=== PATIENT | female | born 1965 | race Caucasian/White ===

== ENCOUNTER 2017-12-04 21:27 | Emergency (ER) | payer OTHER ==
[~2017-12-04] VITALS: Ht 160 cm; Wt 123.2 kg
[~2017-12-04 21:27] MED LIST: ALBUTEROL0.09 MG/A4 IH; ALBUTEROL0.83 MG/ML IH; ALEVE220 MG PO; ALLERGY RELIEF10 M1 PO; AMBIEN 5MG TABLE5 MG PO; CALAN SR 120MG120 MG PO; CITALOPRAM20 MG PO; CLEOCIN HCL300 MG PO; CLONAZEPAM0.25 MG PO; ESTRADIOL1 MG PO; FLONASE0.05 MG/AC NS; FLOVENT HF0.11 MG/AC IH; FOLIC ACID1 MG PO; IPRATROPIUM BROM3 M1 IH; KETOCONAZOLE2% TP; LEVOTHYROXINE0.05 MG PO; LISINOPRIL20 MG PO; PRILOSEC 20MG20 MG PO; PRINIVIL20 M1 PO; REQUIP0.5 MG PO; TRIAMCINOLONE0.1% TP; TUSSIONEX PENNKI5 ML PO; VAGIFEM10 MCG VG; [UNRECOGNIZED DRUG - OTHER] TP
[2017-12-04] MEDS ORDERED: OMEPRAZOLE40 MG PO (21:42)
[2017-12-04] MEDS ORDERED: CITALOPRAM40 MG PO (21:42)
[2017-12-04] MEDS ORDERED: PREDNISONE20 MG PO (21:43)
[2017-12-04] MEDS ORDERED: COSENTYX P150 MG/1 M SQ (22:18)
[2017-12-04] MEDS ORDERED: METHOTREXA25 MG/1 ML IJ (22:21)
[2017-12-04 22:28] LABS: HEMATOCRIT 44.8 % (37.0-47.0); HEMOGLOBIN 14.6 g/dL (12.5-16.0); MEAN CELL VOLUME 93 fl (78-100); MEAN CORPUSCULAR HEMOGLOBIN 30 pg (27-31); MEAN CORPUSCULAR HGB CONC 33 g/dL (33-37); MEAN PLATELET VOLUME 10.6 fl (7.4-10.4); PLATELET COUNT 209 K/mm3 (130-400); RED BLOOD COUNT 4.82 M/mm3 (4.10-5.30); RED CELL DISTRIBUTION WIDTH 14.1 % (11.5-14.5); WHITE BLOOD COUNT 15.1 K/mm3 (4.8-10.8)
[2017-12-04 22:41] LABS: ALBUMIN 3.6 g/dL (3.5-5.0); BUN/CREATININE RATIO 16.5 (6.0-26.0); TOTAL BILIRUBIN 0.5 mg/dL (0.2-1.3); TOTAL PROTEIN 7.2 g/dL (6.3-8.2)
[2017-12-04 22:44] LABS: BAND 1 % (0-10); LYMPHOCYTE 12 % (20-51); MONOCYTE 5 % (3-10); NEUTROPHILS 79 % (42-75)
[2017-12-04 23:21] LABS: URINE APPEARANCE HAZY; URINE BILIRUBIN NEGATIVE (NEGATIVE); URINE BLOOD TRACE (NEGATIVE); URINE COLOR YELLOW; URINE GLUCOSE NEGATIVE (NEGATIVE); URINE KETONE NEGATIVE (NEGATIVE); URINE LEUKOCYTE ESTERASE NEGATIVE (NEGATIVE); URINE MUCUS PRESENT (NOT PRESENT); URINE NITRATE NEGATIVE (NEGATIVE); URINE PROTEIN(semi-quant) NEGATIVE (NEGATIVE); URINE UROBILINOGEN NORMAL (NORMAL); URINE WBC 0-1 /hpf (0-3)
[2017-12-04] MEDS ORDERED: ZOFRAN ODT4 MG PO (23:46)
[2017-12-05 00:04] VITALS: BP 138/63
== END 2017-12-05 00:04 | disposition home or self-care (01) ==
LOC: ED 21:27
PROVIDERS: Family Medicine
DX: K52.9 Noninfective gastroenteritis and colitis, unspecified (principal); Z79.899 Other long term (current) drug therapy

== ENCOUNTER 2017-12-05 13:14 | Inpatient (IN) | payer OTHER ==
[~2017-12-05] VITALS: Ht 160 cm; Wt 120.3 kg
[~2017-12-05 13:14] MED LIST changes: +CITALOPRAM40 MG PO; +COSENTYX P150 MG/1 M SQ; +METHOTREXA25 MG/1 ML IJ; +OMEPRAZOLE40 MG PO; +PREDNISONE20 MG PO; +ZOFRAN ODT4 MG PO
[2017-12-05 13:29] VITALS: BP 151/75
[2017-12-05 13:53] LABS: HEMATOCRIT 47.5 % (37.0-47.0); HEMOGLOBIN 15.2 g/dL (12.5-16.0); MEAN CELL VOLUME 92 fl (78-100); MEAN CORPUSCULAR HEMOGLOBIN 30 pg (27-31); MEAN CORPUSCULAR HGB CONC 32 g/dL (33-37); MEAN PLATELET VOLUME 10.4 fl (7.4-10.4); PLATELET COUNT 224 K/mm3 (130-400); RED BLOOD COUNT 5.14 M/mm3 (4.10-5.30); RED CELL DISTRIBUTION WIDTH 14.1 % (11.5-14.5); WHITE BLOOD COUNT 18.9 K/mm3 (4.8-10.8)
[2017-12-05 14:12] LABS: BAND 1 % (0-10); LYMPHOCYTE 11 % (20-51); MONOCYTE 9 % (3-10); NEUTROPHILS 79 % (42-75)
[2017-12-05 14:14] LABS: BUN/CREATININE RATIO 11.4 (6.0-26.0); POTASSIUM 4.2 mmol/L (3.6-5.0)
--- NOTE | 2017-12-05 15:11 | NUR ---
ASSIST PATIENT TO ROOM 203 PER W/C. IV SITE REMAINS INTACT TO RT FOREARM. SHE IS STANDBY ASSIST FOR TRANSFERS. ORIENT TO ROOM PER FOREST PATROLMAN.
[2017-12-05 15:53] VITALS: BP 186/70
[2017-12-05 15:55] VITALS: BP 187/70
--- NOTE | 2017-12-05 16:15 | NUR ---
PATIENT ASSISTED TO BATHROOM. STATES "MY STOMACH IS STARTING TO CRAMP AGAIN. VOIDED 150 MLS OF CLEAR YELLOW URINE AND WHAT APPEARED TO BE A SMALL TO MEDIUM SIZED BRIGHT RED LIQUID STOOL. REPORTS HAVING "A LITTLE BIT" OF NAUSEA REQUESTED PRN ZOFRAN. REPORTS HAVING ABDOMINAL PAIN THAT RADIATES TO BACK RATED 8/10 AT THIS TIME DESCRIBES PAIN CRAMPING. REPORTS PAIN WILL BE 6/10 BUT THEN GO TO 8/10 WHEN CRAMPING. WHEN OFFERED PRN TORADOL PATIENT PATIENT REQUESTED IT. PATIENT'S CALL LIGHT WITHIN REACH. BED ALARM ON.
--- NOTE | 2017-12-05 17:10 | NUR ---
PATIENT RATES PAIN AFTER TORADOL 08/28. REPORTS IT HELPED WITH CRAMPING.
[2017-12-05 18:31] VITALS: BP 115/71
[2017-12-05 18:51] LABS: URINE APPEARANCE CLOUDY; URINE BILIRUBIN NEGATIVE (NEGATIVE); URINE COLOR YELLOW; URINE GLUCOSE NEGATIVE (NEGATIVE); URINE NITRATE NEGATIVE (NEGATIVE); URINE PROTEIN(semi-quant) TRACE mg/dL (NEGATIVE); URINE UROBILINOGEN NORMAL (NORMAL)
[2017-12-05 18:52] LABS: URINE BLOOD TRACE (NEGATIVE); URINE KETONE 1+ (NEGATIVE); URINE LEUKOCYTE ESTERASE NEGATIVE (NEGATIVE)
[2017-12-05 23:00] VITALS: BP 160/76
--- NOTE | 2017-12-06 01:43 | NUR ---
IV rate decreased to 125 cc/hr at this time per verbal order from Dr. Deshpande, patient resting comfortably with at bedside, denies any needs/complaints at this time
[2017-12-06 02:59] VITALS: BP 145/78
--- NOTE | 2017-12-06 05:45 | NUR ---
patient has just had 2 stools that appeared to be straight blood with some clots noted, is c/o more severe abdominal cramping again, IV toradol and po zofran given for comfort at this time, urine continues to be dark yellow, since admission she has had almost 4000 cc of IV fluids in and 400 cc of urine out, second hat placed in toilet for more accurate measurements of stool amounts, instructions given for patient to place all wipes and toilet paper in the trash for now so nurse can get a better look at her stools, patient and verbalized understanding of education, patients skin pale and cool, patient c/o chills, tucked in with a warm blanket, will continue to monitor closely
[2017-12-06 06:27] VITALS: BP 172/84
[2017-12-06 07:04] LABS: HEMOGLOBIN 13.3 g/dL (12.5-16.0); MEAN CELL VOLUME 94 fl (78-100); MEAN CORPUSCULAR HEMOGLOBIN 30 pg (27-31); MEAN CORPUSCULAR HGB CONC 32 g/dL (33-37); MEAN PLATELET VOLUME 10.7 fl (7.4-10.4); PLATELET COUNT 180 K/mm3 (130-400); RED BLOOD COUNT 4.45 M/mm3 (4.10-5.30); RED CELL DISTRIBUTION WIDTH 13.8 % (11.5-14.5)
[2017-12-06 07:50] LABS: BAND 1 % (0-10); LYMPHOCYTE 9 % (20-51); MONOCYTE 12 % (3-10); NEUTROPHILS 78 % (42-75)
--- NOTE | 2017-12-06 08:00 | NUR ---
Pt sitting up in bed. Reports feeling well. Rates pain 2-3/10. Stating it is much better and tolerable then when she got here. Denies any nasuea. Pt requests to take shower. Assisted to shower by CANELO
[2017-12-06 11:00] VITALS: BP 140/84
--- NOTE | 2017-12-06 12:00 | NUR ---
Pt reports abdominal cramping and has 100ml of liquid dark red stool. PRN medications given as ordered. at side
[2017-12-06 15:08] VITALS: BP 160/89
[2017-12-06 18:26] VITALS: BP 135/49
--- NOTE | 2017-12-06 18:50 | NUR ---
BEDSIDE SHIFT REPORT RECIEVED FORM ALPA ADAMES. PATIENT SITTING UP IN CHAIR, CALL LIGHT WITHIN REACH AND BED ALARM ON.
--- NOTE | 2017-12-06 21:26 | NUR ---
PATIENT SITTING UP IN CHAIR, FAMILY AT SIDE. SHIFT ASSESSMENT COMPLETED AT THIS TIME. PATIENT A/O X4. RATING PAIN 3/10 TO LOWER ABDOMEN, WOULD LIKE PRN PAIN MEDICATION WHEN AVAILABLE. LUNGS CTA, DENIES COUGH OR SHORTNESS OF BREATH. BOWEL SOUNDS HYPOACTIVE IN ALL QUADRANTS. 20 G TO RIGHT FOREARM INFUSING NS @ 125 MLS/HR. PATIENT WITHOUT FURTHER NEEDS, WILL CONTINUE TO MONITOR. CALL LIGHT WITHIN REACH AND BED ALARM ON.
[2017-12-06 23:15] VITALS: BP 125/51
[2017-12-07 03:20] VITALS: BP 134/57
[2017-12-07 06:27] VITALS: BP 120/65
[2017-12-07 07:38] LABS: HEMOGLOBIN 12.4 g/dL (12.5-16.0); MEAN CELL VOLUME 94 fl (78-100); MEAN CORPUSCULAR HEMOGLOBIN 30 pg (27-31); MEAN CORPUSCULAR HGB CONC 32 g/dL (33-37); MEAN PLATELET VOLUME 10.2 fl (7.4-10.4); PLATELET COUNT 203 K/mm3 (130-400); RED BLOOD COUNT 4.16 M/mm3 (4.10-5.30); RED CELL DISTRIBUTION WIDTH 13.3 % (11.5-14.5); WHITE BLOOD COUNT 16.4 K/mm3 (4.8-10.8)
[2017-12-07 07:41] LABS: ALBUMIN 2.8 g/dL (3.5-5.0); BUN/CREATININE RATIO 8.9 (6.0-26.0); CALCIUM 7.8 mg/dL (8.4-10.2); POTASSIUM 3.8 mmol/L (3.6-5.0); TOTAL BILIRUBIN 0.5 mg/dL (0.2-1.3); TOTAL PROTEIN 5.9 g/dL (6.3-8.2)
[2017-12-07 08:01] LABS: BAND 1 % (0-10); LYMPHOCYTE 7 % (20-51); MONOCYTE 7 % (3-10); NEUTROPHILS 79 % (42-75)
--- NOTE | 2017-12-07 08:38 | NUR ---
Pt sitting up on edge of bed. Finished all clear liquid breakfast. Denies N/V x >24 hours. Reports abdomen tender to palpation, attributes to previous dry heaving. Fluids infusing to IV in RFA per order. States that she had small loose bloody stool this AM but reports "it was nothing like it has been." Pt is hopeful that she can go home today.
[2017-12-07 11:40] VITALS: BP 127/76
--- NOTE | 2017-12-07 11:47 | NUR ---
Witness most recent stool. Note that there is minimal amounts blood, to brown, liquid stool.
[2017-12-07 15:29] VITALS: BP 160/69
--- NOTE | 2017-12-07 15:45 | NUR ---
Decreased fluid infusion to 75ml/hr per VO Perfecto Tom PA-C.
[2017-12-07 18:21] VITALS: BP 169/86
--- NOTE | 2017-12-07 19:30 | NUR ---
Report received from Jing YUEN. Patient sitting up in recliner with NS infusing at 75 ML/HR. Site to RFA intact. No signs of infiltration or infection. Pain 7/10 to lower abdominal area after being medicated with Toradol from dayshift charge nurse. States has waves of stabbing pain at times with higher intensity. States "I didn't have to have anything for pain last night. Has Minter supper at chicken breast and baked potatoe. Encouraged clear liquids for remaining of night. Assessment completed. Non-compliant with using call light for assist to BR and to chair/bed. unhooks alarms and assists patient. Reported to [employer]. "they know I'm helping her and they said its ok.". Denies wants or needs at this time.
--- NOTE | 2017-12-07 20:30 | NUR ---
Reports pain improved, down to 4/10 with waves of sharp pain at times 5/10.
[2017-12-07 23:04] VITALS: BP 145/70
--- NOTE | 2017-12-08 02:49 | NUR ---
Resting quietly with eyes closed. No further verbalization of pain. IVF infusing NS at 75 ML/HR. Bed alarm on. Call light in reach.
[2017-12-08 03:05] VITALS: BP 161/94
--- NOTE | 2017-12-08 03:30 | NUR ---
Awaken for V/S. Up to BR and voids 1000 ML of urine. Back to bed. Toradol givn for pain to lower abdomen 11/28. No nausea. Bed alarm on. Call light in reach.
--- NOTE | 2017-12-08 06:04 | NUR ---
Awaken for AM medication. Denie wants or needs. States "Im just so tired, I think I have slept more in the last five days than in the past two years".
[2017-12-08 06:25] VITALS: BP 162/86
[2017-12-08 06:30] LABS: HEMATOCRIT 37.4 % (37.0-47.0); HEMOGLOBIN 12.2 g/dL (12.5-16.0); MEAN CELL VOLUME 93 fl (78-100); MEAN CORPUSCULAR HEMOGLOBIN 30 pg (27-31); MEAN CORPUSCULAR HGB CONC 33 g/dL (33-37); MEAN PLATELET VOLUME 9.9 fl (7.4-10.4); PLATELET COUNT 214 K/mm3 (130-400); RED BLOOD COUNT 4.02 M/mm3 (4.10-5.30); RED CELL DISTRIBUTION WIDTH 13.2 % (11.5-14.5); WHITE BLOOD COUNT 12.6 K/mm3 (4.8-10.8)
[2017-12-08 06:42] LABS: CALCIUM 7.9 mg/dL (8.4-10.2); POTASSIUM 3.5 mmol/L (3.6-5.0)
--- NOTE | 2017-12-08 07:03 | NUR ---
Report to Virgie YUEN
[2017-12-08 07:04] LABS: LYMPHOCYTE 13 % (20-51); MONOCYTE 6 % (3-10); NEUTROPHILS 78 % (42-75)
--- NOTE | 2017-12-08 07:43 | NUR ---
PATIENT AWAKE AND JUST RETURNING FROM BATHROOM. SHE DENIES NAUSEA, BUT DOES REPORT CRAMPING TO LOW ABD- RATES 2/. VERBAL ORDER RECEIVED FROM SAMRA Boyce TO DISCONTINUE IV FLUIDS. PATIENT ENCOURAGED TO ADEQUATELY HYDRATE ORALLY. WILL BEGIN DAY WITH CLEAR LIQUID DIET AND ADVANCE SLOWLY FROM THERE SHE D NOT TOLERATE EATING A BLAND MEAL LAST AROLDO. LUNGS CTA BILAT. PATIENT FEELS LI HER HANDS ARE EDEMATOUS/TIGHT. SHE IS FREE OF PITTING EDEMA TO EXTREMITIES. PEDAL PULSES STRONG BILAT. CALL LIGHT IN ROOM. FAMILY PRESENT AT BEDSIDE. SAMRA AMAYA ARRIVES TO BEDSIDE FOR ASSESSMENT.
--- NOTE | 2017-12-08 08:40 | NUR ---
PATIENT RINGS CALL LIGHT TO ALERT STAFF SHE USED THE RESTROOM. SHE IS VERY HAPPY ABOUT PASSING A SMALL SOFT FORMED STOOL.
[2017-12-08 11:04] VITALS: BP 176/77
--- NOTE | 2017-12-08 14:48 | NUR ---
PATIENT RESTING IN BED; IN CHAIR. DISCUSS PLAN OF CARE. PATIENT TO STAY ONE MORE NIGHT AND PLAN TO DC HOME TOMORROW. DISCUSS WITH PATIENT AND HER SPOUSE THAT HEALING WILL TAKE TIME AND FOOD TOLERATION WILL BE TRIAL AND ERROR. THEY VERBALIZE UNDERSTANDING. SHE DID APPRECIATE THE ENSURE CLEAR FOR LUNCH IT HELPED HER FEEL FULL. MINIMAL ABD CRAMPING CURRENTLY. ENCOURAGE REST AND PAIN CONTROL PRN HER BODY HEALS. DISCUSS WITH PATIENT NOT TO GIVE HERSELF A TIME LINE FOR RETURNING TO HER NORM OR BEAT HERSELF UP ABOUT FEELING TIRED. ADVISE THAT HER BODY IS TRYING TO HEAL AND ALTHOUGH IT MAY NOT LOOK LIKE IT, HER BODY IS WORKING HARD TO RECOVER AND SHE WILL FEEL TIRED.
[2017-12-08 15:05] VITALS: BP 171/75
[2017-12-08 18:04] VITALS: BP 189/77
--- NOTE | 2017-12-08 18:55 | NUR ---
REPORT GIVEN TO JASSON REYNOSO.
--- NOTE | 2017-12-08 19:07 | NUR ---
Report received from Maribel YUEN. CANELO to desk and reports patient requesting Toradol for pain. Patient up to BR independent without calling for assist. in room. A/O x4. Pain level 6-7/10. states "oh, really that high". This nurse commented to patient as she was looking at the board, trying to figure out what she was rating it, not to worry if it wasn't high, I just need to know the level and she will get the medication. Patient immediately got angry with this nurse and stating "forget it" "I don't want any medication" "it's not like I haven't had ulcerative colitis!" "this nurse tried to explain that I wasn't saying she didn't have pain or that I did not believe her" "I just wanted her to know it does not matter the level of the pain that she can certainly have it for prevention of pain getting worse. Patient stated "just forget it". Offered patient another nurse, notified charge nurse.
--- NOTE | 2017-12-08 19:30 | NUR ---
An Kilpatrick RN to assume care of patient at this time.
[2017-12-08 23:07] VITALS: BP 158/79
[2017-12-09 03:11] VITALS: BP 174/80
[2017-12-09 06:13] LABS: HEMATOCRIT 37.8 % (37.0-47.0); HEMOGLOBIN 12.3 g/dL (12.5-16.0); MEAN CELL VOLUME 93 fl (78-100); MEAN CORPUSCULAR HEMOGLOBIN 30 pg (27-31); MEAN CORPUSCULAR HGB CONC 33 g/dL (33-37); PLATELET COUNT 247 K/mm3 (130-400); RED BLOOD COUNT 4.07 M/mm3 (4.10-5.30); RED CELL DISTRIBUTION WIDTH 13.1 % (11.5-14.5); WHITE BLOOD COUNT 9.8 K/mm3 (4.8-10.8)
[2017-12-09 06:20] VITALS: BP 167/76
[2017-12-09 06:27] LABS: BUN/CREATININE RATIO 4.9 (6.0-26.0); CALCIUM 8.1 mg/dL (8.4-10.2); POTASSIUM 3.6 mmol/L (3.6-5.0)
[2017-12-09 06:34] LABS: BAND 3 % (0-10); LYMPHOCYTE 22 % (20-51); NEUTROPHILS 61 % (42-75)
[2017-12-09 06:35] LABS: MONOCYTE 7 % (3-10)
--- NOTE | 2017-12-09 08:36 | NUR ---
Pt up to recliner. Ate 100% breakfast without pain to abdomen or nausea. Reports no BM this AM but passing flatus. Reports plan to leave after lunch.
[2017-12-09] MEDS ORDERED: ZOFRAN ODT4 MG PO (09:27)
[2017-12-09] MEDS ORDERED: KLOR-CON 1010 MEQ PO (09:27)
[2017-12-09] MEDS ORDERED: KETOROLAC10 MG PO (09:28)
[2017-12-09 10:53] VITALS: BP 165/81
--- NOTE | 2017-12-09 12:31 | NUR ---
Discussed d/c instructions with pt, then with pt and upon his arrival. Informed that for ease of use, can open canned soup and pour off broth instead of buying separate items. Pt is apprehensive about advancing diet, instructed to go as slowly as she feels comfortable. Pt asked about work note but is planning to be off tomorrow anyway. Informed that returning after the weekend would be appropriate but that she should listen to her body. Pt acknowledges understanding. will stop at pharmacy to sheepskin pickler meds. Pt escorted from facility via WC to POV driven by .
== END 2017-12-09 12:31 | disposition home or self-care (01) | DRG 372 ==
LOC: ED 13:14 → MED/SURG 15:15
PROVIDERS: Nurse Practitioner Family; Nurse Practitioner Primary Care; Physician Assistant; ADMIT Family Medicine
DX: A04.3 Enterohemorrhagic Escherichia coli infection (principal); K92.1 Melena; L40.50 Arthropathic psoriasis, unspecified; E87.6 Hypokalemia
CPT/HCPCS: J1885; J3490; J7030; Q9967

== ENCOUNTER 2018-02-05 15:06 | Emergency (ER) | payer OTHER ==
[~2018-02-05] VITALS: Ht 160 cm; Wt 120.0 kg
[~2018-02-05 15:06] MED LIST changes: +KETOROLAC10 MG PO; +KLOR-CON 1010 MEQ PO
[2018-02-05] MEDS ORDERED: ASPIR LOW81 MG PO (15:16)
[2018-02-05] MEDS ORDERED: CLARITIN 1010 MG/TAB PO (15:16)
[2018-02-05] MEDS ORDERED: NAPROSYN500 M1 PO (15:17)
[2018-02-05] MEDS ORDERED: SINGULAIR 110 MG/TAB PO (15:17)
[2018-02-05] MEDS ORDERED: SYMBICORT1 AE3 IH (15:17)
[2018-02-05 15:49] LABS: HEMATOCRIT 41.2 % (37.0-47.0); HEMOGLOBIN 13.1 g/dL (12.5-16.0); MEAN CELL VOLUME 90 fl (78-100); MEAN CORPUSCULAR HEMOGLOBIN 29 pg (27-31); MEAN CORPUSCULAR HGB CONC 32 g/dL (33-37); MEAN PLATELET VOLUME 10.2 fl (7.4-10.4); PLATELET COUNT 290 K/mm3 (130-400); RED BLOOD COUNT 4.59 M/mm3 (4.10-5.30); RED CELL DISTRIBUTION WIDTH 13.6 % (11.5-14.5); WHITE BLOOD COUNT 11.6 K/mm3 (4.8-10.8)
[2018-02-05 16:11] LABS: LYMPHOCYTE 11 % (20-51); MONOCYTE 3 % (3-10); NEUTROPHILS 84 % (42-75)
[2018-02-05 16:19] LABS: PARTIAL THROMBOPLASTIN TIME 21.6 SECONDS (21.0-32.0); PROTHROMBIN TIME 9.6 SECONDS (9.0-12.0)
[2018-02-05 17:53] VITALS: BP 152/72
== END 2018-02-05 17:35 | disposition home or self-care (01) ==
LOC: ED 15:06
PROVIDERS: Family Medicine
DX: R04.0 Epistaxis (principal); Z79.82 Long term (current) use of aspirin; Z79.899 Other long term (current) drug therapy; J45.909 Unspecified asthma, uncomplicated

== ENCOUNTER → 2018-06-09 | Outpatient (CLI) | payer BC ==
[~2018-06-09] MED LIST changes: +ASPIR LOW81 MG PO; +CLARITIN 1010 MG/TAB PO; +NAPROSYN500 M1 PO; +SINGULAIR 110 MG/TAB PO; +SYMBICORT1 AE3 IH
== END ==
LOC: MAMMO 13:52
DX: N64.4 Mastodynia (principal); N64.59 Other signs and symptoms in breast; Z41.1 Encounter for cosmetic surgery

== ENCOUNTER → 2019-04-05 | Outpatient (CLI) | payer BC | LOC: RAD 07:37 | DX: M51.24 Other intervertebral disc displacement, thoracic region (principal); G95.9 Disease of spinal cord, unspecified; K14.9 Disease of tongue, unspecified ==

== ENCOUNTER → 2020-04-18 | Outpatient (CLI) | payer BC ==
[2020-02-28 20:30] VITALS: BP 139/88
[~2020-04-18] MED LIST changes: +LOW DOSE ASPIRI81 M1 PO; +REQUIP0.25 M1 PO
== END ==
LOC: RAD 12:55
DX: R13.10 Dysphagia, unspecified (principal)

== ENCOUNTER 2021-03-28 15:51 | Emergency (ER) | payer BC ==
[~2021-03-28] VITALS: Ht 157.5 cm; Wt 114.0 kg
[2021-03-28 18:02] VITALS: BP 131/77
== END 2021-03-28 17:45 | disposition home or self-care (01) ==
LOC: ED 15:51
DX: R11.2 Nausea with vomiting, unspecified (principal); T36.8X5A Adverse effect of other systemic antibiotics, initial encounter
CPT/HCPCS: J0780

== ENCOUNTER → 2021-06-30 | Outpatient (CLI) | payer BC | LOC: RAD 14:35 | DX: R05.3 Chronic cough (principal); Z20.822 Contact with and (suspected) exposure to COVID-19 ==

== ENCOUNTER 2021-07-17 14:16 | Outpatient (RCR) | payer BC | END 2021-07-21 | disposition home or self-care (01) | LOC: PT | DX: M54.2 Cervicalgia (principal) ==

== ENCOUNTER 2021-07-25 08:00 | Outpatient (RCR) | payer BC | END 2021-08-18 | disposition still patient (30) | LOC: PT | DX: M54.2 Cervicalgia (principal) ==

== ENCOUNTER → 2021-10-06 | Outpatient (CLI) | payer BC ==
[2021-10-06 13:00] LABS: POTASSIUM 4.4 mmol/L (3.5-5.1)
[2021-10-06 13:01] LABS: CALCIUM 9.6 mg/dL (8.3-10.5)
== END ==
LOC: LAB 12:18
PROVIDERS: Internal Medicine
DX: E16.1 Other hypoglycemia (principal); E06.3 Autoimmune thyroiditis

== ENCOUNTER → 2021-11-27 | Outpatient (CLI) | payer BC ==
[2021-11-27 10:11] LABS: BASO # 0.06 K/mm3 (0.02-0.10); EOS # 0.41 K/mm3 (0.04-0.40); EOS % 3.7 % (1.0-5.0); HEMATOCRIT 38.4 % (37.0-47.0); HEMOGLOBIN 11.8 g/dL (12.5-16.0); LYMPH# 2.02 K/mm3 (1.50-4.00); MEAN CELL VOLUME 87 fl (78-100); MEAN CORPUSCULAR HEMOGLOBIN 27 pg (27-31); MEAN CORPUSCULAR HGB CONC 31 g/dL (33-37); MEAN PLATELET VOLUME 9.7 fl (7.4-10.4); MONO # 0.91 K/mm3 (0.20-0.80); PLATELET COUNT 352 K/mm3 (130-400); RED CELL DISTRIBUTION WIDTH 15.2 % (11.5-14.5); WHITE BLOOD COUNT 11.2 K/mm3 (4.8-10.8)
[2021-11-27 10:31] LABS: ALBUMIN 3.6 g/dL (3.5-5.0); POTASSIUM 4.1 mmol/L (3.5-5.1)
[2021-11-27 10:33] LABS: CALCIUM 9.5 mg/dL (8.3-10.5)
[2021-11-27 10:34] LABS: TOTAL PROTEIN 6.9 g/dL (6.4-8.3)
[2021-11-27 10:36] LABS: TOTAL BILIRUBIN 0.2 mg/dL (0.2-1.2)
[2021-11-28 18:01] LABS: TB GOLD INTERPRETATION.TB GOLD Negative (Negative)
== END ==
LOC: LAB 09:34
PROVIDERS: Dermatology
DX: L40.8 Other psoriasis (principal); L40.50 Arthropathic psoriasis, unspecified; Z79.899 Other long term (current) drug therapy

== ENCOUNTER → 2023-05-24 | Outpatient (CLI) | payer BC ==
[~2023-05-24] MED LIST changes: +VIBRAMYCIN HYC100 MG PO
[2023-05-24 16:52] LABS: BASO # 0.14 K/mm3 (0.02-0.10); EOS # 0.04 K/mm3 (0.04-0.40); EOS % 0.4 % (1.0-5.0); HEMATOCRIT 37.6 % (37.0-47.0); HEMOGLOBIN 11.7 g/dL (12.5-16.0); LYMPH# 1.32 K/mm3 (1.50-4.00); MEAN CELL VOLUME 92 fl (78-100); MEAN CORPUSCULAR HEMOGLOBIN 29 pg (27-31); MEAN CORPUSCULAR HGB CONC 31 g/dL (33-37); MEAN PLATELET VOLUME 9.9 fl (7.4-10.4); MONO # 1.12 K/mm3 (0.20-0.80); NEU # 7.34 K/mm3 (1.40-6.50); PLATELET COUNT 368 K/mm3 (130-400); RED CELL DISTRIBUTION WIDTH 16.2 % (11.5-14.5); WHITE BLOOD COUNT 10.6 K/mm3 (4.8-10.8)
[2023-05-24 17:21] LABS: ALBUMIN 3.8 g/dL (3.5-5.0)
[2023-05-24 17:22] LABS: CALCIUM 9.9 mg/dL (8.3-10.5)
[2023-05-24 17:24] LABS: TOTAL PROTEIN 7.1 g/dL (6.4-8.3)
[2023-05-24 17:25] LABS: TOTAL BILIRUBIN 0.3 mg/dL (0.2-1.2)
== END ==
LOC: LAB 16:18
PROVIDERS: Internal Medicine
DX: C83.39 Diffuse large B-cell lymphoma, extranodal and solid organ sites (principal)

== ENCOUNTER → 2023-06-15 | Outpatient (CLI) | payer BC ==
[2023-06-15 18:40] LABS: BASO # 0.08 K/mm3 (0.02-0.10); EOS # 0.05 K/mm3 (0.04-0.40); EOS % 0.5 % (1.0-5.0); HEMATOCRIT 37.1 % (37.0-47.0); HEMOGLOBIN 11.7 g/dL (12.5-16.0); LYMPH# 1.18 K/mm3 (1.50-4.00); MEAN CELL VOLUME 90 fl (78-100); MEAN CORPUSCULAR HEMOGLOBIN 29 pg (27-31); MEAN CORPUSCULAR HGB CONC 32 g/dL (33-37); MEAN PLATELET VOLUME 9.8 fl (7.4-10.4); MONO # 0.81 K/mm3 (0.20-0.80); NEU # 6.91 K/mm3 (1.40-6.50); PLATELET COUNT 338 K/mm3 (130-400); RED BLOOD COUNT 4.11 M/mm3 (4.10-5.30); WHITE BLOOD COUNT 9.5 K/mm3 (4.8-10.8)
[2023-06-15 18:47] LABS: ALBUMIN 3.9 g/dL (3.5-5.0)
[2023-06-15 18:49] LABS: CALCIUM 9.4 mg/dL (8.3-10.5)
[2023-06-15 18:52] LABS: TOTAL BILIRUBIN 0.3 mg/dL (0.2-1.2)
== END ==
LOC: LAB 18:15
PROVIDERS: Internal Medicine
DX: C83.39 Diffuse large B-cell lymphoma, extranodal and solid organ sites (principal)

== ENCOUNTER → 2023-07-19 | Outpatient (CLI) | payer BC ==
[2023-07-19 16:59] LABS: BASO # 0.04 K/mm3 (0.02-0.10); EOS # 0.13 K/mm3 (0.04-0.40); HEMATOCRIT 35.3 % (37.0-47.0); HEMOGLOBIN 11.2 g/dL (12.5-16.0); LYMPH# 0.71 K/mm3 (1.50-4.00); MEAN CELL VOLUME 90 fl (78-100); MEAN CORPUSCULAR HEMOGLOBIN 29 pg (27-31); MEAN CORPUSCULAR HGB CONC 32 g/dL (33-37); MEAN PLATELET VOLUME 9.7 fl (7.4-10.4); MONO # 0.61 K/mm3 (0.20-0.80); NEU # 2.37 K/mm3 (1.40-6.50); PLATELET COUNT 182 K/mm3 (130-400); RED BLOOD COUNT 3.91 M/mm3 (4.10-5.30); RED CELL DISTRIBUTION WIDTH 17.2 % (11.5-14.5); WHITE BLOOD COUNT 4.3 K/mm3 (4.8-10.8)
[2023-07-19 17:02] LABS: ALBUMIN 3.7 g/dL (3.5-5.0)
[2023-07-19 17:04] LABS: CALCIUM 9.2 mg/dL (8.3-10.5)
[2023-07-19 17:05] LABS: TOTAL PROTEIN 6.3 g/dL (6.4-8.3)
[2023-07-19 17:07] LABS: TOTAL BILIRUBIN 0.29 mg/dL (0.2-1.2)
== END ==
LOC: LAB 16:39
PROVIDERS: Internal Medicine
DX: C83.39 Diffuse large B-cell lymphoma, extranodal and solid organ sites (principal)

== ENCOUNTER → 2023-09-06 | Outpatient (CLI) | payer BC | LOC: LAB 17:21 | DX: R73.03 Prediabetes (principal) ==

== ENCOUNTER → 2023-09-13 | Outpatient (CLI) | payer BC ==
[2023-09-13 17:06] LABS: BASO # 0.05 K/mm3 (0.02-0.10); EOS # 0.43 K/mm3 (0.04-0.40); EOS % 6.1 % (1.0-5.0); HEMATOCRIT 40.4 % (37.0-47.0); HEMOGLOBIN 12.4 g/dL (12.5-16.0); LYMPH# 1.43 K/mm3 (1.50-4.00); MEAN CELL VOLUME 90 fl (78-100); MEAN CORPUSCULAR HEMOGLOBIN 28 pg (27-31); MEAN CORPUSCULAR HGB CONC 31 g/dL (33-37); MEAN PLATELET VOLUME 9.6 fl (7.4-10.4); MONO # 0.75 K/mm3 (0.20-0.80); NEU # 4.28 K/mm3 (1.40-6.50); PLATELET COUNT 233 K/mm3 (130-400); RED BLOOD COUNT 4.48 M/mm3 (4.10-5.30); RED CELL DISTRIBUTION WIDTH 16.2 % (11.5-14.5)
[2023-09-13 17:09] LABS: ALBUMIN 3.9 g/dL (3.5-5.0)
[2023-09-13 17:11] LABS: CALCIUM 10.4 mg/dL (8.3-10.5)
[2023-09-13 17:14] LABS: TOTAL BILIRUBIN 0.3 mg/dL (0.2-1.2)
== END ==
LOC: LAB 09-06 17:25
PROVIDERS: Internal Medicine
DX: C83.39 Diffuse large B-cell lymphoma, extranodal and solid organ sites (principal)

== ENCOUNTER → 2023-12-10 | Outpatient (CLI) | payer BC ==
[~2023-12-10] MED LIST changes: +ALLOPURINOL300 M1 PO; +AMLODIPINE BESYL5 MG PO; +BUSPIRONE5 MG PO; +CYMBALTA30 M1 PO; +GLUCOPHAGE PO; +IYUZEH 0.005%1 EACH OP; +LYRICA 150MG C150 MG PO; +NATURAL IRON65 MG PO; +NEURONTIN300 M1 PO; +RESTORIL15 MG PO; +TREMFYA100 MG/11 SQ; +ZOVIRAX400 MG PO
[2023-12-10 16:20] LABS: BASO # 0.02 K/mm3 (0.02-0.10); EOS # 0.26 K/mm3 (0.04-0.40); EOS % 4.7 % (1.0-5.0); HEMATOCRIT 41.5 % (37.0-47.0); HEMOGLOBIN 13.2 g/dL (12.5-16.0); LYMPH# 1.15 K/mm3 (1.50-4.00); MEAN CELL VOLUME 89 fl (78-100); MEAN CORPUSCULAR HEMOGLOBIN 28 pg (27-31); MEAN CORPUSCULAR HGB CONC 32 g/dL (33-37); MEAN PLATELET VOLUME 9.8 fl (7.4-10.4); MONO # 0.69 K/mm3 (0.20-0.80); NEU # 3.33 K/mm3 (1.40-6.50); PLATELET COUNT 279 K/mm3 (130-400); RED BLOOD COUNT 4.64 M/mm3 (4.10-5.30); RED CELL DISTRIBUTION WIDTH 14.5 % (11.5-14.5); WHITE BLOOD COUNT 5.5 K/mm3 (4.8-10.8)
[2023-12-10 16:24] LABS: ALBUMIN 3.8 g/dL (3.5-5.0)
[2023-12-10 16:26] LABS: CALCIUM 9.6 mg/dL (8.3-10.5)
[2023-12-10 16:27] LABS: TOTAL PROTEIN 6.5 g/dL (6.4-8.3)
[2023-12-10 16:42] LABS: TOTAL BILIRUBIN 0.1 mg/dL (0.2-1.2)
== END ==
LOC: LAB 12:26
PROVIDERS: Internal Medicine
DX: C83.39 Diffuse large B-cell lymphoma, extranodal and solid organ sites (principal)

== ENCOUNTER → 2024-03-24 | Outpatient (CLI) | payer OTHER ==
[2024-03-24 13:19] LABS: BASO # 0.03 K/mm3 (0.02-0.10); EOS # 0.27 K/mm3 (0.04-0.40); EOS % 3.3 % (1.0-5.0); HEMATOCRIT 42.3 % (37.0-47.0); HEMOGLOBIN 13.4 g/dL (12.5-16.0); LYMPH# 0.98 K/mm3 (1.50-4.00); MEAN CELL VOLUME 93 fl (78-100); MEAN CORPUSCULAR HEMOGLOBIN 30 pg (27-31); MEAN CORPUSCULAR HGB CONC 32 g/dL (33-37); MONO # 0.76 K/mm3 (0.20-0.80); NEU # 5.99 K/mm3 (1.40-6.50); PLATELET COUNT 277 K/mm3 (130-400); RED BLOOD COUNT 4.55 M/mm3 (4.10-5.30); WHITE BLOOD COUNT 8.1 K/mm3 (4.8-10.8)
[2024-03-24 13:27] LABS: ALBUMIN 4.1 g/dL (3.5-5.0)
[2024-03-24 13:28] LABS: CALCIUM 9.8 mg/dL (8.3-10.5)
[2024-03-24 13:29] LABS: TOTAL PROTEIN 7.4 g/dL (6.4-8.3)
[2024-03-24 13:31] LABS: TOTAL BILIRUBIN 0.2 mg/dL (0.2-1.2)
== END ==
LOC: LAB 12:24
PROVIDERS: Internal Medicine
DX: C83.390 Primary central nervous system lymphoma (principal)

== ENCOUNTER → 2024-07-14 | Outpatient (CLI) | payer OTHER ==
[2024-07-14 07:53] LABS: BASO # 0.02 K/mm3 (0.02-0.10); EOS # 0.16 K/mm3 (0.04-0.40); EOS % 1.4 % (1.0-5.0); HEMATOCRIT 39.7 % (37.0-47.0); HEMOGLOBIN 12.4 g/dL (12.5-16.0); MEAN CELL VOLUME 96 fl (78-100); MEAN CORPUSCULAR HEMOGLOBIN 30 pg (27-31); MEAN CORPUSCULAR HGB CONC 31 g/dL (33-37); MEAN PLATELET VOLUME 10.3 fl (7.4-10.4); MONO # 0.72 K/mm3 (0.20-0.80); PLATELET COUNT 268 K/mm3 (130-400); RED BLOOD COUNT 4.13 M/mm3 (4.10-5.30); RED CELL DISTRIBUTION WIDTH 14.4 % (11.5-14.5); WHITE BLOOD COUNT 11.5 K/mm3 (4.8-10.8)
[2024-07-14 08:02] LABS: ALBUMIN 3.8 g/dL (3.5-5.0); CALCIUM 9.6 mg/dL (8.3-10.5)
[2024-07-14 08:04] LABS: TOTAL PROTEIN 7.1 g/dL (6.4-8.3)
[2024-07-14 08:05] LABS: TOTAL BILIRUBIN 0.2 mg/dL (0.2-1.2)
== END ==
LOC: LAB 07:21
PROVIDERS: Internal Medicine
DX: C83.390 Primary central nervous system lymphoma (principal)

== ENCOUNTER → 2024-09-06 | Outpatient (CLI) | payer OTHER | LOC: RAD 14:08 | DX: J98.4 Other disorders of lung (principal) ==